=== PATIENT | female | born 1995 | race Caucasian/White ===

== ENCOUNTER 2017-05-03 11:57 | Emergency (ER) | payer OTHER ==
[~2017-05-03] VITALS: Ht 175.3 cm; Wt 59.0 kg
[~2017-05-03 11:57] MED LIST: IBUPROFEN600 MG PO; ZOFRAN ODT4 MG PO
[2017-05-03] MEDS ORDERED: PENICILLIN V P500 MG PO (12:08)
[2017-05-03] MEDS ORDERED: ULTRAM50 MG PO ×2 (12:09)
[2017-05-03] MEDS ORDERED: IBUPROFEN600 MG PO (12:09)
[2017-05-03] MEDS ORDERED: NAPROSYN500 MG PO (12:23)
[2017-05-03] MEDS ORDERED: PHENERGAN25 MG PT (12:23)
[2017-05-03] MEDS ORDERED: ONDANSETRON ODT4 MG SL (12:23)
[2017-05-04] MEDS ORDERED: NORCO 5-325 TA1 EACH PO (17:24)
[2017-05-04] MEDS ORDERED: CLEOCIN HCL300 MG PO (17:37)
== END 2017-05-03 12:55 | disposition home or self-care (01) ==
LOC: ED 11:57
DX: R11.2 Nausea with vomiting, unspecified (principal); K08.89 Other specified disorders of teeth and supporting structures; F17.200 Nicotine dependence, unspecified, uncomplicated; Z79.2 Long term (current) use of antibiotics
CPT/HCPCS: 96372; 99283; J1885

== ENCOUNTER 2017-05-04 17:05 | Emergency (ER) | payer OTHER ==
[~2017-05-04] VITALS: Ht 175.3 cm; Wt 56.7 kg
[~2017-05-04 17:05] MED LIST changes: +NAPROSYN500 MG PO; +ONDANSETRON ODT4 MG SL; +PENICILLIN V P500 MG PO; +PHENERGAN25 MG PT; +ULTRAM50 MG PO
[2017-05-04] MEDS ORDERED: NORCO 5-325 TA1 EACH PO (17:24)
[2017-05-04] MEDS ORDERED: CLEOCIN HCL300 MG PO (17:37)
== END 2017-05-04 17:55 | disposition home or self-care (01) ==
LOC: ED 17:05
DX: K08.89 Other specified disorders of teeth and supporting structures (principal); F17.200 Nicotine dependence, unspecified, uncomplicated; Z79.2 Long term (current) use of antibiotics
CPT/HCPCS: 99283

== ENCOUNTER 2017-11-12 16:17 | Emergency (ER) | payer OTHER ==
[~2017-11-12] VITALS: Ht 175.3 cm; Wt 56.7 kg
--- OUTSIDE RECORDS SUMMARY | ~2017-11-12 | XMS | Clinical Summary ---
Demographics + + + | Address | [address] | | | [place] [address] | + + + | Home Phone | | + + + | Preferred Language | Unknown | + + + | Marital Status | Single | + + + | Sikhism Affiliation | Unknown | + + + | Race | Unknown | + + + | Ethnic Group | Unknown | + + + Author + + + | Author | [facility] | | | and [place] | + + + | Organization | [facility] | | | and [place] | + + + | Address | Unknown | + + + | Phone | Unavailable | + + + Support + + +---------+ + | Name | Relationship | Address | Phone | + + +---------+ + | Brynn Bonner | ECON | Unknown | | + + +---------+ + Care Team Providers + +------+ + | Care Box Stapler Name | Role | Phone | + +------+ + | No, Physician | PP | Unavailable | + +------+ + Allergies No Known Allergies Current Medications + + +-------+---------+------+------+-------+ | Prescription | Sig. | Disp. | Refills | Star | End | Statu | | | | | | t | Date | s | | | | | | Date | | | + + +-------+---------+------+------+-------+ | | Take 1 tablet by | | | | | Activ | | HYDROcodone-acetamin | mouth every 6 hours | | | | | e | | ophen (NORCO) 5-325 | as needed for Pain. | | | | | | | mg per tablet | | | | | | | + + +-------+---------+------+------+-------+ Active Problems Not on file Social History + + + +--------+------+ | Tobacco Use | Types | Packs/Day | Years | Date | | | | | Used | | + + + +--------+------+ | Current Every Day | Cigarettes | 0.5 | 5 | | | Smoker | | | | | + + + +--------+------+ + +---+---+---+ | Smokeless Tobacco: | | | | | Never Used | | | | + +---+---+---+ + + +---------+ + | Alcohol Use | Drinks/We | oz/Week | Comments | | | ek | | | + + +---------+ + | No | | | | + + +---------+ + + + + | Sex Assigned at | Date Recorded | | | | + + + | Not on file | | + + + Last Filed Vital Signs + + + + | Vital Sign | Reading | Time Taken | + + + + | Blood Pressure | 103/72 | 05/05/20178 PDT | + + + + | Pulse | 91 | 05/05/20178 PDT | + + + + | Temperature | 36.8 C (98.2 F) | 05/05/20171217 PDT | + + + + | Respiratory Rate | 20 | 05/05/20171407 PDT | + + + + | Oxygen Saturation | 97% | 05/05/20171407 PDT | + + + + | Inhaled Oxygen | - | - | | Concentration | | | + + + + | Weight | 56.7 kg (125 lb) | 05/05/20171217 PDT | + + + + | Height | 175.3 cm (5' 9") | 05/05/20171217 PDT | + + + + | Body Mass Index | 18.46 | 05/05/2017 1218 PDT | + + + + Plan of Treatment + + + + + | Health Maintenance | Due Date | Last Done | Comments | + + + + + | Vaccine: HPV ( of 3 | | | | | - Female 3-dose | 5 | | | | series) | | | | + + + + + | Vaccine: | | | | | Dtap/Tdap/Td (1 - | 3 | | | | Tdap) | | | | + + + + + | Vaccine: | | | | | Pneumococcal 19-64 | 3 | | | | (PPSV23 only) Medium | | | | | Risk (1 of 1 - | | | | | PPSV23) | | | | + + + + + | Cervical Cancer | | | | | Screening (Pap) | 5 | | | + + + + + | Vaccine: Influenza | | | | | (#1) | 8 | | | + + + + + Results Not on filefrom Last 3 Months Insurance + +--------+ +--------+ +---------+ | Payer | Benefi | Subscriber | Type | Phone | Address | | | t Plan | ID | | | | | | / | | | | | | | Group | | | | | + +--------+ +--------+ +---------+ | [place] MEDICA | [id number] | [place] | [phone] | | [place] | | id | [phone] | | | | PLUS | | | | | + +--------+ +--------+ +---------+ + +--------+ +--------+ + + | Guarantor Name | Accoun | Relation to | Date | Phone | Billing Address | | | t Type | Patient | of | | | | | | | | | | + +--------+ +--------+ + + | TIANNA BONNER | Person | Self [birth year] Home: | [address] | | | al/Fam | | 1995 | [phone] [place], [place] | | | [place]ie | | [phone] | + +--------+ +--------+ + +
--- OUTSIDE RECORDS SUMMARY | ~2017-11-12 | XMS | Clinical Summary ---
Demographics + + + | Address | [address] | | | [place] [address] | + + + | Home Phone | | + + + | Preferred Language | Unknown | + + + | Marital Status | Single | + + + | Religion Affiliation | Unknown | + + + | Race | Unknown | + + + | Ethnic Group | Unknown | + + + Author + + + | Author | [facility] | | | and [place] | + + + | Organization | [facility] | | | and [place] [...] Team Providers + +------+ + | Care Fountain Supervisor Name | Role | Phone | + [...] +---------+ | [place] | MEDICA | [id number] | [place] | [phone] | | [...] Self | [birth year] | Home: | [address] | | | al/Fam | | 1995 | [phone] [place], [place] | | | [place] | | | [phone] | + +--------+ +--------+ + +
[~2017-11-12 16:17] MED LIST changes: +CLEOCIN HCL300 MG PO; +NORCO 5-325 TA1 EACH PO
[2017-11-12] MEDS ORDERED: DAYTIME COLD-F118 ML PO (16:28)
== END 2017-11-12 16:40 | disposition home or self-care (01) ==
LOC: ED 16:17
DX: R05 Cough (principal); M54.2 Cervicalgia; R19.7 Diarrhea, unspecified

== ENCOUNTER 2022-05-18 16:17 | Emergency (ER) | payer OTHER ==
[~2022-05-18] VITALS: Ht 175.3 cm; Wt 56.7 kg
[~2022-05-18 16:17] MED LIST changes: +DAYTIME COLD-F118 ML PO
[2022-05-18] MEDS ORDERED: SUMATRIPTAN SUC25 MG PO (18:11)
== END 2022-05-18 18:35 | disposition home or self-care (01) ==
LOC: ED 16:17
DX: G43.909 Migraine, unspecified, not intractable, without status migrainosus (principal); F17.200 Nicotine dependence, unspecified, uncomplicated; Z79.899 Other long term (current) drug therapy
CPT/HCPCS: 96374; 96375; 99283-25; J1200; J1885; J2765; J3030; J7121